=== PATIENT | female | born 1985 | race Two or more races ===

== ENCOUNTER 2020-10-13 07:20 | Inpatient (IN) | payer OTHER ==
[2020-10-13] MEDS ORDERED: FENTANYL/BUPIVACAINE/NS/PF - PCEA - 50 ML DISP.SYRIN EP ONE (08:33)
[2020-10-13] MEDS ORDERED: ELECTROLYTE-148 SOLN 1,000 ML IV SCH (09:00)
[2020-10-13] MEDS ORDERED: NALOXONE HCL 0.4 MG/ML VIAL IVPUSH PRN (09:07)
[2020-10-13] MEDS ORDERED: FENTANYL/BUPIVACAINE/NS/PF - PCEA - 50 ML DISP.SYRIN EP SCH (09:15)
[2020-10-13 09:48] VITALS: BMI 37.6
[2020-10-13 09:57] LABS: BASO % 0.1 % (0-2.0); EOS % 0.2 % (0-4.5); HEMATOCRIT 35.7 % (32.4-45.2); HEMOGLOBIN 12.2 GM/dL (10.7-15.3); LYMPH % 14.5 % (8-40); MCH 30.2 pg (25.7-33.7); MCHC 34.2 g/dl (32.0-36.0); MEAN CELL VOLUME 88.4 fl (80-96); MEAN PLT VOLUME 8.1 fl (7.5-11.1); MONO % 5.4 % (3.8-10.2); NEUT % 79.8 % (42.8-82.8); PLATELET COUNT 216 10^3/uL (134-434); RBC 4.04 M/mm3 (3.60-5.2); RDW 13.7 % (11.6-15.6); WHITE BLOOD COUNT 11.6 K/mm3 (4.0-10.0)
[2020-10-13 10:05] LABS: INR 0.86 (0.83-1.09); PROTHROMBIN TIME (PATIENT) 10.4 SEC (9.7-13.0)
[2020-10-13 10:08] LABS: ACTIVATED PTT 26.9 SECONDS (25.2-36.5)
[2020-10-13 10:22] LABS: CALCIUM 8.1 mg/dL (8.5-10.1)
[2020-10-13 10:23] LABS: BLOOD UREA NITROGEN 14.3 mg/dL (7-18)
[2020-10-13 10:26] LABS: CREATININE 0.7 mg/dL (0.55-1.3)
[2020-10-13] MEDS ORDERED: OXYTOCIN 20 UNITS in 0.9% NS 20 UNIT/1,000 ML INFUS.BAG IV ONE ×2 (11:26→13:21)
[2020-10-13] MEDS ORDERED: LIDOCAINE HCL 1% PRESERVATIVE FREE - 30ML VIAL ONE (11:26)
[2020-10-13] MEDS ORDERED: METHYLERGONOVINE MALEATE 0.2 MG/1 ML AMP IM PRN (11:47)
[2020-10-13] MEDS ORDERED: WITCH HAZEL 50% (TUCKS) 40 PAD/JAR PAD TP PRN (11:47)
[2020-10-13] MEDS ORDERED: BENZOCAINE 28 GM HEMORRHOIDAL OINTMENT TP PRN (11:47)
[2020-10-13] MEDS ORDERED: BENZOCAINE 20% 57 GM BOTTLE TP PRN (11:47)
[2020-10-13] MEDS ORDERED: BISACODYL 10 MG SUPP.RECT RC PRN (11:47)
[2020-10-13] MEDS ORDERED: oxyCODONE HCL 5 MG TABLET PO PRN (11:47)
[2020-10-13] MEDS ORDERED: OXYTOCIN 20 UNITS in 0.9% NS 20 UNIT/1,000 ML INFUS.BAG IV SCH (12:00)
[2020-10-13] MEDS: IBUPROFEN 600 MG TABLET (FP) PO PRN ×2 (15:52→23:09)
[2020-10-13] MEDS: ACETAMINOPHEN 325 MG TABLET (FP) PO PRN ×2 (15:52→23:09)
[2020-10-14] MEDS: IBUPROFEN 600 MG TABLET (FP) PO PRN ×2 (04:03→15:49)
[2020-10-14] MEDS: ACETAMINOPHEN 325 MG TABLET (FP) PO PRN (04:04)
[2020-10-14 07:57] LABS: BASO % 0.2 % (0-2.0); EOS % 0.3 % (0-4.5); HEMOGLOBIN 9.4 GM/dL (10.7-15.3); LYMPH % 19.4 % (8-40); MCH 31.1 pg (25.7-33.7); MCHC 34.9 g/dl (32.0-36.0); MEAN CELL VOLUME 88.9 fl (80-96); MEAN PLT VOLUME 8.1 fl (7.5-11.1); MONO % 5.9 % (3.8-10.2); NEUT % 74.2 % (42.8-82.8); PLATELET COUNT 178 10^3/uL (134-434); RBC 3.04 M/mm3 (3.60-5.2); WHITE BLOOD COUNT 12.5 K/mm3 (4.0-10.0)
[2020-10-14] MEDS: PRENATAL VITAMINS W/ FOLIC ACID TABLET (FP) PO SCH (09:26)
[2020-10-14] MEDS ORDERED: SENNOSIDES/DOCUSATE COMBO (SENNA PLUS) TABLET (UD) PO PRN (22:00)
[2020-10-15] MEDS: IBUPROFEN 600 MG TABLET (FP) PO PRN ×2 (06:28→09:41)
[2020-10-15] MEDS: ACETAMINOPHEN 325 MG TABLET (FP) PO PRN ×2 (06:28→09:41)
[2020-10-15] MEDS: PRENATAL VITAMINS W/ FOLIC ACID TABLET (FP) PO SCH (09:41)
[2020-10-15 11:23] VITALS: BP 117/74; PULSE 59; TEMP 98.1
== END 2020-10-15 13:05 | disposition home or self-care (01) | DRG 807 ==
LOC: JDEL 07:20 → JLDR 08:18 → J3W 13:41
PROVIDERS: ADMIT Obstetrics & Gynecology; ATTEND Obstetrics & Gynecology
PROC: 0HQ9XZZ Repair Perineum Skin, External Approach (ICD-10-PCS; principal; 2020-10-13)
PROC: 10E0XZZ Delivery of Products of Conception, External Approach (ICD-10-PCS; 2020-10-13)
PROC: 0W8NXZZ Division of Female Perineum, External Approach (ICD-10-PCS; 2020-10-13)
DX: O70.0 First degree perineal laceration during delivery (principal); Z37.0 Single live birth; Z3A.39 39 weeks gestation of pregnancy
CPT/HCPCS: 36415; 59025; 59409; 80048; 85025; 85610; 85730; 86780; 86850; 86900; 86901; C9803; U0003; U0005